=== PATIENT | female | born 1980 | race Two or more races ===

== ENCOUNTER 2022-03-09 09:49 | Day surgery (SDC) | payer OTHER ==
[~2022-03-09] VITALS: Ht 157.5 cm; Wt 59.9 kg
[2022-03-09 10:24] LABS: BASOPHILS % (AUTO) 0.6 % (0.0-2.0); EOSINOPHILS % (AUTO) 0.6 % (0.0-4.0); HEMATOCRIT 31.2 % (36-48); HEMOGLOBIN 10.7 g/dL (12.0-16.0); LYMPHOCYTES # (AUTO) 1.2 K/uL (2.5-16.5); LYMPHOCYTES % (AUTO) 23.7 % (20.5-51.1); MEAN CORPUSCULAR HEMOGLOBIN 31 pg (27-31); MEAN CORPUSCULAR HGB CONC 34 g/dL (33-37); MEAN CORPUSCULAR VOLUME 89.9 fL (80-94); MONOCYTES # (AUTO) 0.3 K/uL (0.8-1.0); MONOCYTES % (AUTO) 5.9 % (1.7-9.3); NEUTROPHILS # (AUTO) 3.5 K/uL (1.8-7.7); NEUTROPHILS % (AUTO) 69.2 % (42.2-75.2); PLATELET COUNT (AUTO) 134 K/uL (140-450); RED BLOOD CELL COUNT(AUTO) 3.47 MIL/uL (4.20-5.40); RED CELL DISTRIBUTION WIDTH 12.4 % (11.6-13.7); WHITE BLOOD COUNT (AUTO) 5.1 K/uL (4.8-10.8)
[2022-03-09 10:45] LABS: ALBUMIN 3.3 g/dL (3.4-5.0); ANION GAP 8.1 (8-16); CARBON DIOXIDE 29.2 mmol/L (21-32); CREATININE 0.6 mg/dL (0.6-1.3); POTASSIUM 4.3 mmol/L (3.5-5.1); TOTAL BILIRUBIN 0.3 mg/dL (0.0-1.0)
[2022-03-09] MEDS ORDERED: BUPIVACAINE-MPF 0.25% 30 ML VIAL INJ ONE (12:07)
[2022-03-09] MEDS ORDERED: fentaNYL citrate 0.05 MG/ML VIAL ONE (12:39)
[2022-03-09] MEDS ORDERED: PROPOFOL 200 MG/20 ML VIAL IV ONE (12:39)
[2022-03-09] MEDS ORDERED: SUCCINYLCHOLINE CHLORIDE 200 MG/10 ML VIAL IVP ONE (12:39)
[2022-03-09] MEDS ORDERED: SEVOFLURANE 250 ML BTL INH ONE (16:15)
[2022-03-09] MEDS ORDERED: ROCURONIUM 50 MG/5 ML VIAL IV ONE (16:35)
[2022-03-09] MEDS ORDERED: ONDANSETRON 4 MG/2 ML VIAL ONE (16:36)
[2022-03-09] MEDS ORDERED: SUGAMMADEX SODIUM 200 MG/2 ML VIAL IV ONE (17:06)
[2022-03-09] MEDS ORDERED: MEPERIDINE 25 MG/ML SYR ONE (17:10)
[2022-03-09] MEDS ORDERED: KETOROLAC 30 MG/ML VIAL IVP SCH (17:43)
[2022-03-09] MEDS ORDERED: oxyCODONE/APAP 5/325 MG 1 TAB TAB PO PRN ×2 (17:45)
[2022-03-09] MEDS ORDERED: LACTATED RINGERS 1,000 ML IV SCH (17:50)
[2022-03-09] MEDS ORDERED: ONDANSETRON 4 MG/2 ML VIAL IVP PRN (17:50)
[2022-03-09] MEDS ORDERED: MEPERIDINE 25 MG/ML SYR IVP PRN (17:50)
[2022-03-09] MEDS ORDERED: diphenhydrAMINE 50 MG/ML VIAL IVP PRN (17:50)
[2022-03-09] MEDS: HYDROmorphone 1 MG/ML AMP IVP PRN ×4 (17:55→18:25)
[2022-03-09] MEDS ORDERED: HYDROmorphone PFS 2 MG/ML SYR ONE (17:56)
== END 2022-03-09 20:40 | disposition home or self-care (01) ==
LOC: MDS 09:49 → MMU 09:50 → MDS 20:40
PROVIDERS: ATTEND Obstetrics & Gynecology
DX: N92.0 Excessive and frequent menstruation with regular cycle (principal); N94.10 Unspecified dyspareunia; Z79.899 Other long term (current) drug therapy; Z20.822 Contact with and (suspected) exposure to COVID-19
CPT/HCPCS: 36415; 58563; 58670; 80053; 81025; 85025; 86886; 86900; 86901; 87426; 88302; 88305; J0330; J0690; J1170; J2175; J2405; J2704; J3010; J3490; J7060